=== PATIENT | male | born 1945 | race Caucasian/White ===

== ENCOUNTER 2016-11-27 11:44 | Inpatient (IN) | payer BC, OTHER ==
[~2016-11-27] VITALS: Ht 175.3 cm; Wt 86.0 kg
[2016-11-27] MEDS ORDERED: DIAZ2TAB PO (12:47)
[2016-11-27] MEDS ORDERED: ADVIN25/60 INH (12:47)
[2016-11-27] MEDS ORDERED: HYDR-5688 PO (12:47)
[2016-11-27] MEDS ORDERED: FINA1TAB36 PO (12:47)
--- NOTE | 2016-11-27 13:09 | EMERGENCY ROOM VISIT NOTE ---
History Report prepared by Hernesto: Geri Marion Under the Supervision of: Dr. Jr Valdez M.D. First contact with patient: 12:28 Chief Complaint: BACK PAIN Stated Complaint: BACK PAIN/ LEG PAIN History of Present Illness The patient is a 71 year old male who presents to the Emergency Room with complaints of persistent back pain that started 3 days ago. The patient states that he is supposed to have a MRI done that Dr. Mejia - Orthopedic Surgery ordered. The patient states that he experienced spasms in his lower back two weeks ago, but they resolved on their own. 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 The spasms are worse than they were two weeks ago and he is having trouble ambulating secondary to the pain. He is also experiencing left leg pain and numbness in the bottom of his feet. The patient denies weakness, bowel or bladder incontinence, and numbness in his thighs. The patient went to see Dr. Mejia for the pain and he prescribed him an antiinflammatory. The antiinflammatory offered him no relief, so Dr. Mejia prescribed him Vicodin and Valium. The patient is resting comfortably now. Source of History: patient Onset: 3 days ago Position: back Timing: other (persitent) Modifying Factors (Worsening): other (walking) Associated Symptoms: + numbness (in bottom of feet), No weakness Note: trouble ambulating, left leg pain, no bowel or bladder incontinence, no numbness in thighs Review of Systems See HPI for pertinent positives & negatives. A total of 10 systems reviewed and were otherwise negative. Past Medical & Surgical Medical Problems: (1) Nontoxic multinodular goiter Family History No pertinent family history Social History Smoking Status: Former Smoker Marital Status: Housing Status: lives with family Current/Historical Medications Scheduled Aspirin (Aspirin EC Low Dose), 81 MG PO DAILY Cholecalciferol (Vitamin D3), 1 TAB PO DAILY Finasteride (Proscar), 1 TAB PO DAILY Fluticasone Prop/Salmeterol (Advair Diskus 100/50 60 Dose), 1 PUFFS INH BID Multivitamin (Multivitamin), 1 TAB PO DAILY Sertraline (Zoloft), 50 MG PO DAILY Tamsulosin Hcl (Flomax), 1 CAP PO DAILY Vitamin Mixture (Vitamin E Complete High G), 1 CAP PO DAILY Scheduled PRN Albuterol Sulfate (Proair Respiclick), 2 PUFF INH QID PRN for SOB/Wheezing Hydrocodone/Acetaminophen 5MG/325MG ([place] 5MG/325MG), 1-2 TABLETS PO Q6 PRN for Pain Temazepam (Restoril), 1 CAP PO HS PRN for Insomnia Allergies Coded Allergies: No Known Allergies (Unverified , 11/27/16) Physical Exam Vital Signs Date Time Temp Pulse Resp B/P Pulse Ox O2 Delivery O2 Flow Rate FiO2 11/27/16 15:33 49 18 135/80 97 11/27/16 14:39 49 119/66 96 11/27/16 13:12 53 11/27/16 11:49 36.9 51 18 124/73 97 Room Air Physical Exam GENERAL: Patient is a healthy-appearing well-nourished male HEAD: Normocephalic atraumatic EYES: Ocular movements intact pupils equal and react to light OROPHARYNX mucous membranes are moist no exudates present no erythema or edema present NECK: Supple no nuchal rigidity CHEST: Good equal expansion LUNGS: Clear and equal to auscultation CARDIAC: Normal S1 and S2 ABDOMEN: Soft nontender no guarding BACK: No CVA tenderness. No evidence of saddle anesthesia. No loss of bowel or bladder control. EXTREMITIES: 5/5 strength in bilateral lower extremities. No pain upon palpation normal muscle strength in all groups no clubbing cyanosis or edema NEURO: Patient is following commands is answering questions appropriately. Alert and oriented x3 Cranial Nerves 2-12 grossly intact Medical Decision & Procedures ER Provider Diagnostic Interpretation: MRI results as stated below per my review and radiologist interpretation: MRI OF THE LUMBAR SPINE WITHOUT IV CONTRAST IMPRESSION: 1. There is a left lateral disc herniation at L4-L5. A disc fragment obliterates the left neural foramen and impinges on the exiting left L4 nerve root. 2. Lumbosacral spondylosis at additional levels as detailed above. See discussion for level by level analysis. There is no significant acquired compromise of the central canal. 3. Degenerative disc disease with associated degenerative endplate edema as above. Dictated: 11/27/2016 2:21 PM Transcribed: 11/27/2016 3:08 PM [email or web address] Electronically signed by: Raymond Harvey M.D. 11/27/2016 3:11 PM Dictated Date/Time: 11/27/2016 2:21 PM Laboratory Results 11/27/16 13:05 Red Blood Count 4.21, Mean Corpuscular Volume 91.2, Mean Corpuscular Hemoglobin 32.3, Mean Corpuscular Hemoglobin Concent 35.4, Mean Platelet Volume 10.1, Neutrophils (%) (Auto) 84.1, Lymphocytes (%) (Auto) 12.1, Monocytes (%) (Auto) 2.9, Eosinophils (%) (Auto) 0.5, Basophils (%) (Auto) 0.1, Neutrophils # (Auto) 6.60, Lymphocytes # (Auto) 0.95, Monocytes # (Auto) 0.23, Eosinophils # (Auto) 0.04, Basophils # (Auto) 0.01 11/27/16 13:05 Test 11/27/16 13:05 11/27/16 13:20 White Blood Count 7.85 K/uL (4.8-10.8) Red Blood Count 4.21 M/uL (4.7-6.1) Hemoglobin 13.6 g/dL (14.0-18.0) Hematocrit 38.4 % (42-52) Mean Corpuscular Volume 91.2 fL (80-100) Mean Corpuscular Hemoglobin 32.3 pg (25-34) Mean Corpuscular Hemoglobin Concent 35.4 g/dl (32-36) Platelet Count 157 K/uL (130-400) Mean Platelet Volume 10.1 fL (7.4-10.4) Neutrophils (%) (Auto) 84.1 % Lymphocytes (%) (Auto) 12.1 % Monocytes (%) (Auto) 2.9 % Eosinophils (%) (Auto) 0.5 % Basophils (%) (Auto) 0.1 % Neutrophils # (Auto) 6.60 K/uL (1.4-6.5) Lymphocytes # (Auto) 0.95 K/uL (1.2-3.4) Monocytes # (Auto) 0.23 K/uL (0.11-0.59) Eosinophils # (Auto) 0.04 K/uL (0-0.5) Basophils # (Auto) 0.01 K/uL (0-0.2) RDW Standard Deviation 40.9 fL (36.4-46.3) RDW Coefficient of Variation 12.4 % (11.5-14.5) Immature Granulocyte % (Auto) 0.3 % Immature Granulocyte # (Auto) 0.02 K/uL (0.00-0.02) Anion Gap 9.0 mmol/L (3-11) Est Creatinine Clear Calc Drug Dose 98.3 ml/min Estimated GFR () 107.1 Estimated GFR (Non- 92.4 BUN/Creatinine Ratio 12.4 (10-20) Calcium Level 8.8 mg/dl (8.5-10.1) Total Bilirubin 0.6 mg/dl (0.2-1) Direct Bilirubin 0.2 mg/dl (0-0.2) Aspartate Amino Transf (AST/SGOT) 16 U/L (15-37) Alanine Aminotransferase (ALT/SGPT) 22 U/L (12-78) Alkaline Phosphatase 74 U/L (45-117) Total Protein 6.7 gm/dl (6.4-8.2) Albumin 3.8 gm/dl (3.4-5.0) Lipase 111 U/L (73-393) Urine Color YELLOW Urine Appearance CLEAR (CLEAR) Urine pH 6.5 (4.5-7.5) Urine Specific [place] 1.010 (1.000-1.030) Urine Protein NEG (NEG) Urine Glucose (UA) NEG (NEG) Urine Ketones NEG (NEG) Urine Occult Blood NEG (NEG) Urine Nitrite NEG (NEG) Urine Bilirubin NEG (NEG) Urine Urobilinogen NEG (NEG) Urine Leukocyte Esterase NEG (NEG) Labs reviewed by ED physician. Medications Administered Medications (Trade) Dose Ordered Sig/[place] Route Start Time Stop Time Status Last Admin Dose Admin Dexamethasone Sodium Phosphate (Decadron Inj) 10 mg NOW ONCE IV 11/27/16 15:15 11/27/16 15:16 DC 11/27/16 15:24 10 MG Ketorolac Tromethamine (Toradol Inj) 30 mg NOW STAT IV 11/27/16 15:16 11/27/16 15:17 DC 11/27/16 15:23 30 MG Hydromorphone HCl (Dilaudid Inj) 0.5 mg NOW STAT IV 11/27/16 15:30 11/27/16 15:31 DC 11/27/16 17:02 0.5 MG Ondansetron HCl (Zofran Inj) 4 mg NOW STAT IV 11/27/16 15:30 11/27/16 15:31 DC 11/27/16 17:02 4 MG ED Course 1231: Past medical records reviewed. The patient was evaluated in room A12. A complete history and physical examination was performed. 1255: I reassessed the patient. He is resting comfortably. 1333: I reevaluated the patient. He is still resting comfortably. 1514: I discussed the patient's case with Dr. Mejia - Orthopedic Surgery. He said to admit the patient to medicine. 1515: Ordered Decadron 10 mg IV 1516: Upon reexamination the patient is resting comfortably. I discussed results and treatment plan with the patient. He verbalizes agreement and understanding. The patient will be evaluated for further management. Ordered Toradol Inj 30 mg IV 1520: I discussed the patient's case with Bonny Rubio, she has agreed to evaluate the patient for further management and care. 1530: Ordered Zofran Inj 4 mg IV, Dilaudid Inj 0.5 mg IV Medical Decision Differential diagnosis: Etiologies such as musculoskeletal, disc herniation, fracture, aortic disease, metastatic disease, cord compression, discitis, infection, renal colic, gastrointestinal, acute exacerbation of chronic back pain, sciatica, cauda equina, as well as others were entertained. This is a 71-year-old male who presents emergency department after he was unable to walk this morning due to pain. The patient had a scheduled MRI as an outpatient however came to the emergency department instead. He took his [place] Bolt as well as Valium and now is pain-free upon arrival to the emergency department. An IV was established laboratory work was obtained and the patient was sent for an MRI of the spine. The patient's MRIs concerning for an L4 impinging on the neural foramen. I did discuss the case with Dr. Smith who asked that the patient be admitted to the hospitalist service. An IV was established, the patient was given Decadron, Toradol, Dilaudid, Zofran. Repeat examination revealed improvement patient's symptoms. I did discuss the case with the hospitalist service who agreed to admit the patient. Patient and family were in agreement with the treatment plan. Consults Time Called: 151 Consulting Physician: Dr. Mejia - Orthopedic Surgery Returned Call: 1514 I discussed the patient's case with Dr. Mejia - Orthopedic Surgery. He said to admit the patient to medicine. Additional Consults: Time Called: 151 Consulted Physician: Bonny Rubio Returned Call: 1520 Additional Comments: I discussed the patient's case with Bonny Rubio, she has agreed to evaluate the patient for further management and care. Impression Primary Impression: Back pain Additional Impression: Slipped intervertebral disc Scribe Attestation The scribe's documentation has been prepared under my direction and personally reviewed by me in its entirety. I confirm that the note above accurately reflects all work, treatment, procedures, and medical decision making performed by me. Departure Information Dispostion Being Evaluated By Hospitalist Pat Reynolds M.D. (PCP) Patient Instructions [facility] Problem Qualifiers Primary Impression: Back pain Back pain location: low back pain Chronicity: unspecified Back pain laterality: unspecified Sciatica presence: unspecified whether sciatica present Qualified Codes: M54.5 - Low back pain Additional Impression: Slipped intervertebral disc Spinal region: lumbar Qualified Codes: M51.26 - Other intervertebral disc displacement, lumbar region
[2016-11-27 13:21] LABS: BASO % 0.1 %; BASO ABS # 0.01 K/uL (0-0.2); COMPLETE YES; EOS % 0.5 %; HEMATOCRIT 38.4 % (42-52); IG% 0.3 %; LYMPH % 12.1 %; LYMPH ABS # 0.95 K/uL (1.2-3.4); MEAN CELL VOLUME 91.2 fL (80-100); MEAN CORPUSCULAR HEMOGLOBIN 32.3 pg (25-34); MEAN CORPUSCULAR HGB CONC 35.4 g/dl (32-36); MEAN PLATELET VOLUME 10.1 fL (7.4-10.4); MONO % 2.9 %; NEUT % 84.1 %; PLATELET COUNT 157 K/uL (130-400); RED BLOOD COUNT 4.21 M/uL (4.7-6.1); WHITE BLOOD COUNT 7.85 K/uL (4.8-10.8)
[2016-11-27 13:42] LABS: BUN/CREATININE RATIO 12.4 (10-20); CALCIUM 8.8 mg/dl (8.5-10.1); CREATININE 0.76 mg/dl (0.60-1.40); POTASSIUM 3.8 mmol/L (3.5-5.1)
[2016-11-27 13:49] LABS: URINE APPEARANCE CLEAR (CLEAR); URINE BILIRUBIN NEG (NEG); URINE COLOR YELLOW; URINE NITRITE NEG (NEG); URINE PH 6.5 (4.5-7.5); UROBILINOGEN NEG (NEG)
[2016-11-27 13:57] LABS: MANUAL MICROSCOPIC REQUIRED? NO; REVIEW REQ? NO
--- NOTE | 2016-11-27 15:08 | DIAGNOSTIC IMAGING REPORT ---
MRI OF THE LUMBAR SPINE WITHOUT IV CONTRAST CLINICAL HISTORY: Low back pain. Left leg pain. COMPARISON STUDY: No priors. TECHNIQUE: MRI of the lumbar spine is performed utilizing various T1 and T2-weighted sequences in the axial and sagittal planes. IV contrast was not administered for this examination. FINDINGS: Lumbar spine: Vertebral body height and alignment are maintained throughout the lumbar spine. Marrow signal intensity is heterogeneous. Advanced chronic degenerative endplate change with marrow edema is seen at L2-L3. Chronic degenerative endplate change with marrow edema is also seen at L4-L5 and L5-S1. The transverse and spinous processes appear intact. There is no evidence of spondylolysis. No destructive bony lesion is identified. A tiny hemangioma is noted in the body of L4. Intervertebral discs: There is degenerative disc desiccation and loss of height throughout the lumbar spine, greatest at L2-L3 and at L5-S1. Paraspinal cord: Partially visualized spinal cord is normal in morphology and signal intensity. The conus medullaris terminates at the level of L1. The nerve roots of the cauda equina are normal in morphology. L1-L2: Unremarkable. L2-L3: There is minimal posterior disc bulge. The central canal and neural foramina are patent. There is minimal subarticular stenosis. Facet arthropathy is of no consequence. L3-L4: There is minimal posterior disc bulge with annular fissure. The central canal and neural foramina are patent. L4-L5: There is a left lateral disc herniation. A large fragment obliterates the left neural foramen as seen on axial image #20. The fragment measures 1.6 cm, and impinges on the exiting left L4 nerve root. The central canal is clear. L5-S1: The central canal and neural foramina are patent. Facet arthropathy is of no consequence. Sacrum: Marrow signal intensity within the sacrum is heterogeneous. No acute abnormality is seen. Soft tissues: There is mild fatty atrophy of the paraspinous musculature. The kidneys demonstrate cortical atrophy. The partially imaged retroperitoneal structures are grossly unremarkable but incomplete evaluated. IMPRESSION: 1. There is a left lateral disc herniation at L4-L5. A disc fragment obliterates the left neural foramen and impinges on the exiting left L4 nerve root. 2. Lumbosacral spondylosis at additional levels as detailed above. See discussion for level by level analysis. There is no significant acquired compromise of the central canal. 3. Degenerative disc disease with associated degenerative endplate edema as above. Dictated: 11/27/2016 2:21 PM Transcribed: 11/27/2016 3:08 PM [email or web address] Electronically signed by: Raymond Harvey M.D. 11/27/2016 3:11 PM Dictated Date/Time: 11/27/2016 2:21 PM
[2016-11-27] MEDS ORDERED: DEXAMETHASONE SOD INJ 10 MG/ML VIAL IV ONE (15:15)
[2016-11-27] MEDS ORDERED: KETOROLAC TROMETHAMINE 30 MG/ML VIAL IV STA (15:16)
[2016-11-27] MEDS ORDERED: HYDROmorphone INJ 0.5 MG/0.5 ML SYR IV STA (15:30)
[2016-11-27] MEDS ORDERED: ONDANSETRON INJ 2 MG/ML 2 ML VIAL IV STA (15:30)
[2016-11-27] MEDS ORDERED: ACETAMINOPHEN 325 MG TAB PO PRN (16:00)
[2016-11-27] MEDS ORDERED: HYDROmorphone INJ 1 MG/ML SYR IV PRN ×2 (16:15→16:45)
[2016-11-27] MEDS ORDERED: ADVIN10/60 INH (16:42)
[2016-11-27] MEDS ORDERED: TEMA-79 PO (16:42)
[2016-11-27] MEDS ORDERED: CHOL1000 PO (16:42)
[2016-11-27] MEDS ORDERED: ASPEC81 PO (16:42)
[2016-11-27] MEDS ORDERED: SERT-234 PO (16:42)
[2016-11-27] MEDS ORDERED: ALBU18002 INH (16:42)
[2016-11-27] MEDS ORDERED: MULT-506 PO (16:42)
[2016-11-27] MEDS ORDERED: TAMS0.4C38 PO (16:42)
[2016-11-27] MEDS ORDERED: VITACAP PO (16:42)
[2016-11-27] MEDS ORDERED: FINA5TAB4 PO (16:42)
[2016-11-27] MEDS ORDERED: HYDROmorphone INJ 0.5 MG/0.5 ML SYR IV PRN (16:45)
[2016-11-27 17:45] VITALS: BP 115/75; PULSE 57; TEMP 37; O2SAT 96; Ht 175.3 cm; Wt 86.0 kg
--- NOTE | 2016-11-27 18:38 | History and Physical ---
History & Physical Date & Time of Service: Nov 27, 2016 at 18:25 Chief Complaint: Back Pain/ Leg Pain Primary Care Physician: Pat Monaco M.D. History of Present Illness 71 year old male who presents to the ER with back pain and left leg pain. Patient reports chronic back pain for the past several years. He reports acute worsening of the pain 4 days ago. Patient reports he was putting his socks on at the time. He reports the pain is located on the left side of his back and radiates down the left leg. He reports intermittent numbness to the left foot. He denies bowel or bladder dysfunction. Pain is increased with ambulation. No fever or chills. He denies chest pain and shortness of breath. No lightheadedness, dizziness, diaphoresis, or syncopal events. He denies abdominal pain, nausea, and vomiting. In the ER, patient underwent MRI that showed a left lateral disc herniation at L4-L5. A disc fragment obliterates the left neural foramen and impinges on the exiting left L4 nerve root. Patient notes improvement of pain when he took Valium that was prescribed for relaxation before the MRI. In the ED he was also given IV Dilaudid, Toradol, and Decadron. Past Medical/Surgical History Medical Problems: (1) Asthma, non-allergic Status: Chronic (2) BPH (benign prostatic hyperplasia) Status: Chronic (3) Depression with anxiety Status: Chronic (4) Nontoxic multinodular goiter Status: Resolved Surgical Problems: (1) History of tonsillectomy Status: Chronic Family History FH: CAD (coronary artery disease) FATHER Social History Smoking Status: Former Smoker Alcohol Use: occasionally Immunizations History of Influenza Vaccine: Yes Influenza Vaccine Date: Aug 07, 2016 History of Tetanus Vaccine?: Yes Tetanus Immunization Date: March 10, 2012 History of Pneumococcal: Yes Pneumococcal Date: Feb 14, 2016 Allergies Coded Allergies: No Known Allergies (Unverified , 11/27/16) Home Medications Scheduled Aspirin (Aspirin EC Low Dose), 81 MG PO DAILY Cholecalciferol (Vitamin D3), 1 TAB PO DAILY Finasteride (Proscar), 1 TAB PO DAILY Fluticasone Prop/Salmeterol (Advair Diskus 100/50 60 Dose), 1 PUFFS INH BID Multivitamin (Multivitamin), 1 TAB PO DAILY Sertraline (Zoloft), 50 MG PO DAILY Tamsulosin Hcl (Flomax), 1 CAP PO DAILY Vitamin Mixture (Vitamin E Complete High G), 1 CAP PO DAILY Scheduled PRN Albuterol Sulfate (Proair Respiclick), 2 PUFF INH QID PRN for SOB/Wheezing Hydrocodone/Acetaminophen 5MG/325MG ([place] 5MG/325MG), 1-2 TABLETS PO Q6 PRN for Pain Temazepam (Restoril), 1 CAP PO HS PRN for Insomnia Review of Systems 10 point review of systems was completed with the pertinent positives and negatives noted per the HPI Physical Exam Vital Signs Date Time Temp Pulse Resp B/P Pulse Ox O2 Delivery O2 Flow Rate FiO2 11/27/16 17:40 36.9 53 13 130/78 94 11/27/16 17:28 130/78 11/27/16 17:14 53 13 94 11/27/16 17:01 141/76 11/27/16 16:44 61 18 96 11/27/16 16:28 133/80 11/27/16 16:14 51 21 96 11/27/16 15:58 125/78 11/27/16 15:44 49 15 97 11/27/16 15:33 49 18 135/80 97 11/27/16 15:31 135/80 11/27/16 15:29 112/64 11/27/16 14:58 112/64 11/27/16 14:44 51 96 11/27/16 14:39 49 119/66 96 11/27/16 14:38 119/66 11/27/16 13:12 53 11/27/16 11:49 36.9 51 18 124/73 97 Room Air General Appearance: no apparent distress Head: normocephalic Eyes: normal inspection ENT: hearing grossly normal Neck: supple, no JVD Respiratory/Chest: lungs clear, normal breath sounds, no respiratory distress Cardiovascular: regular rate, rhythm, no edema, normal peripheral pulses Abdomen/GI: normal bowel sounds, non tender, soft Extremities/Musculoskelatal: normal inspection, no calf tenderness, + pertinent finding (negative straight leg test) Neurologic/Psych: no motor/sensory deficits, alert, normal mood/affect, oriented x 3 Skin: normal color, warm/dry Diagnostics Laboratory Results Results Past 24 Hours Test 11/27/16 13:05 11/27/16 13:20 Range/Units White Blood Count 7.85 4.8-10.8 K/uL Red Blood Count 4.21 4.7-6.1 M/uL Hemoglobin 13.6 14.0-18.0 g/dL Hematocrit 38.4 42-52 % Mean Corpuscular Volume 91.2 80-100 fL Mean Corpuscular Hemoglobin 32.3 25-34 pg Mean Corpuscular Hemoglobin Concent 35.4 32-36 g/dl Platelet Count 157 130-400 K/uL Mean Platelet Volume 10.1 7.4-10.4 fL Neutrophils (%) (Auto) 84.1 % Lymphocytes (%) (Auto) 12.1 % Monocytes (%) (Auto) 2.9 % Eosinophils (%) (Auto) 0.5 % Basophils (%) (Auto) 0.1 % Neutrophils # (Auto) 6.60 1.4-6.5 K/uL Lymphocytes # (Auto) 0.95 1.2-3.4 K/uL Monocytes # (Auto) 0.23 0.11-0.59 K/uL Eosinophils # (Auto) 0.04 0-0.5 K/uL Basophils # (Auto) 0.01 0-0.2 K/uL RDW Standard Deviation 40.9 36.4-46.3 fL RDW Coefficient of Variation 12.4 11.5-14.5 % Immature Granulocyte % (Auto) 0.3 % Immature Granulocyte # (Auto) 0.02 0.00-0.02 K/uL Sodium Level 138 136-145 mmol/L Potassium Level 3.8 3.5-5.1 mmol/L Chloride Level 105 98-107 mmol/L Carbon Dioxide Level 24 21-32 mmol/L Anion Gap 9.0 3-11 mmol/L Blood Urea Nitrogen 9 7-18 mg/dl Creatinine 0.76 0.60-1.40 mg/dl Est Creatinine Clear Calc Drug Dose 98.3 ml/min Estimated GFR () 107.1 Estimated GFR (Non- 92.4 BUN/Creatinine Ratio 12.4 10-20 Random Glucose 111 70-99 mg/dl Calcium Level 8.8 8.5-10.1 mg/dl Total Bilirubin 0.6 0.2-1 mg/dl Direct Bilirubin 0.2 0-0.2 mg/dl Aspartate Amino Transf (AST/SGOT) 16 15-37 U/L Alanine Aminotransferase (ALT/SGPT) 22 12-78 U/L Alkaline Phosphatase 74 45-117 U/L Total Protein 6.7 6.4-8.2 gm/dl Albumin 3.8 3.4-5.0 gm/dl Lipase 111 73-393 U/L Urine Color YELLOW Urine Appearance CLEAR CLEAR Urine pH 6.5 4.5-7.5 Urine Specific [place] 1.010 1.000-1.030 Urine Protein NEG NEG Urine Glucose (UA) NEG NEG Urine Ketones NEG NEG Urine Occult Blood NEG NEG Urine Nitrite NEG NEG Urine Bilirubin NEG NEG Urine Urobilinogen NEG NEG Urine Leukocyte Esterase NEG NEG Diagnostic Radiology LUMBAR SPINE MRI IMPRESSION: 1. There is a left lateral disc herniation at L4-L5. A disc fragment obliterates the left neural foramen and impinges on the exiting left L4 nerve root. 2. Lumbosacral spondylosis at additional levels as detailed above. See discussion for level by level analysis. There is no significant acquired compromise of the central canal. 3. Degenerative disc disease with associated degenerative endplate edema as above. Impression Assessment and Plan INTRACTABLE BACK PAIN, L4-L5 DISC HERNIATION - admit to med/surg - Dr. Mejia on consult - recommends IV Decadron and Toradol around the clock, PRN Dilaudid - PT/OT BPH - continue finasteride and tamsulosin DEPRESSION - continue sertraline DVT PROPHYLAXIS - SCDs in the event patient requires OR DISPO - In my clinical judgment this beneficiary meets acute admission criteria, established by [facility], that includes being hospitalized through two midnights. ADDENDUM: I have examined the patient and have discussed the case with the provider above. 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 He reports a h/o IT band tear on imaging in the past, and surgery was suggested but he did not follow through. SLR negative, Neurologically intact, the patient was able to walk for me. Cont plan as stated. Pain control efforts overnight and per Dr. Mejia. Taylor Bach DO [facility] Hospitalist. Level of Care Med/Surg Resuscitation Status FULL RESUSCITATION VTE Prophylaxis VTE Risk Assessment Done? Y/N: Yes Risk Level: Moderate Given or contraindicated: Enoxaparin (Lovenox)SQ
[2016-11-27] MEDS: HYDROCODONE/ACETAMOPHEN 5/325MG TAB PO PRN (19:00)
--- NOTE | 2016-11-27 19:11 | HISTORY & PHYSICAL EXAMINATION ---
DATE OF ADMISSION: 11/27/2016 CHIEF COMPLAINT: Back and lower extremity difficulty. WORKING DIAGNOSIS: Disc herniation, lumbar spine L4-L5 with L4 nerve root entrapment. HISTORY OF PRESENT ILLNESS: Seymour Oconnell is a delightful young gentleman. He is 71 years of age. I have known him for at least 1.5 year. He was in his pretty good state of health up until recently where he developed some back and buttock pain, lower extremity difficulty. We were attributing it to the degenerative segment at L5-S1. Then the problem really got out of control in the last several days, leading to this hospital stay today. He was basically nonambulatory. He tried on 2 different occasions to get to the MRI scanner as an outpatient because of the severity of pain and he could not. He finally got to the hospital today by way of emergency transport and lo and behold he has a large disc herniation at L4-L5 on the left hand side which completely effaces and traps the 4 nerve roots underneath the pedicle of the 4 vertebrae. We admitted him for pain control. He was basically immobile. We have him on IV steroids along with Toradol along with p.o. and IV narcotics and he is relatively comfortable. We will get the pain management team to weigh in on him if at all possible. I explained to the family this is a weekend and then they cannot be around 24/. We are optimistic that he will respond to conservative nonsurgical methods, but there is a high likelihood as well he may need surgical procedure. I would be in favor of a lumbar spine discectomy at L4-L5. I do not believe he will need any more instrumentation or fusion technology. He may need some motion-preserving technology if I would have to destabilize him with more extensive dissection. JEET
[2016-11-27] MEDS: DEXAMETHASONE INJ 6 MG in SYRINGE 0 ML IV SCH (20:28)
[2016-11-27] MEDS: FLUTICASONE/SALMETEROL 100/50 (ADVAIR) 14 PUFF/1 INHALER INH SCH ×2 (20:35→20:44)
--- NOTE | 2016-11-27 21:25 | CONSULTATION REPORT ---
DATE OF CONSULTATION: 11/27/2016 CHIEF COMPLAINT: Back pain and left lower extremity pain. HISTORY OF PRESENT ILLNESS: The patient is a 71-year-old male known to Dr. Mejia who has been seeing for a degenerative segment L5-S1 intermittently over the years. However, 3 days ago he developed acute worsening of his pain. He has been having excruciating pain as he describes in his left leg, around the left lateral hip area and down the left leg. Reports some diminished sensation at times in the left lower leg. No bowel or bladder incontinence. He was scheduled for an MRI today, but could not get there and called the paramedics, came to the Emergency Room, where he is evaluated and being admitted for pain management at this point. His pain is worse with ambulation. He has been taking Meloxicam as well as [place]. He did have 1 Valium today which helped him quite a bit, he said. No other complaints at this time. PAST MEDICAL HISTORY: Asthma, enlarged prostate. PAST SURGICAL HISTORY: Denied. MEDICATIONS: Advair inhaler, finasteride. ALLERGIES: No known drug allergies. SOCIAL HISTORY: He is . Denies tobacco use. Drinks alcohol occasionally. FAMILY HISTORY: Noncontributory. REVIEW OF SYSTEMS: Noncontributory. PHYSICAL EXAMINATION: GENERAL: Today, he is a well-developed, well-nourished male in no distress at this time. He is supine in bed. EXTREMITIES: Examination of the left lower extremity today, he has no pain with his hip with range of motion of his hip joint. Negative straight leg raise testing at this time. His sensation is intact to touch. He is able to dorsiflex, plantarflex, invert and adrian. He has 5/5 strength with dorsiflexion, plantar flexion, inversion, and eversion. X-RAYS: No x-rays were obtained. MRI was obtained today which demonstrated a left lateral disc herniation at L4-L5, impinging on the nerve root as well as some lumbar spondylosis/degenerative disc disease. IMPRESSION: Low back pain with left lower extremity radiculopathy, L4-L5 left lateral disc herniation. PLAN: He is being admitted here to [facility] by the hospitalist service today. They have already ordered PT/OT, steroids, and toradol. We will consult pain management for their recommendations. We will order TEDs, SCDs for DVT prophylaxis. He will be seen and evaluated by Dr. Mejia as well. JEET
[2016-11-27] MEDS ORDERED: NURSING VERBAL MED ORDER ONE (21:45)
[2016-11-27] MEDS: DIAZEPAM 5MG TAB PO PRN (22:04)
[2016-11-27] MEDS: KETOROLAC TROMETHAMINE 15 MG/ML VIAL IV. SCH (22:05)
[2016-11-27 22:50] VITALS: BP 111/51; PULSE 61; TEMP 36.5; O2SAT 94
[2016-11-28] MEDS: DEXAMETHASONE INJ 6 MG in SYRINGE 0 ML IV SCH ×4 (02:02→19:29)
[2016-11-28] MEDS: KETOROLAC TROMETHAMINE 15 MG/ML VIAL IV. SCH ×3 (03:55→17:06)
[2016-11-28 04:00] VITALS: BP 127/72; PULSE 55; TEMP 36.4; O2SAT 99
[2016-11-28 07:13] LABS: HEMATOCRIT 37.6 % (42-52); MEAN CELL VOLUME 90.2 fL (80-100); MEAN CORPUSCULAR HEMOGLOBIN 31.9 pg (25-34); MEAN CORPUSCULAR HGB CONC 35.4 g/dl (32-36); MEAN PLATELET VOLUME 10.2 fL (7.4-10.4); PLATELET COUNT 154 K/uL (130-400); RED BLOOD COUNT 4.17 M/uL (4.7-6.1); WHITE BLOOD COUNT 9.69 K/uL (4.8-10.8)
[2016-11-28] MEDS: DIAZEPAM 5MG TAB PO PRN ×2 (07:20→17:06)
[2016-11-28 07:43] LABS: BUN/CREATININE RATIO 16.7 (10-20); CALCIUM 8.9 mg/dl (8.5-10.1); CREATININE 0.72 mg/dl (0.60-1.40); POTASSIUM 4.3 mmol/L (3.5-5.1)
[2016-11-28 07:55] VITALS: BP 134/60; PULSE 59; TEMP 36.5; O2SAT 95
[2016-11-28] MEDS: FLUTICASONE/SALMETEROL 100/50 (ADVAIR) 14 PUFF/1 INHALER INH SCH ×2 (08:25→21:29)
[2016-11-28] MEDS: TAMSULOSIN HCL 0.4 MG CAP PO SCH (08:26)
[2016-11-28] MEDS: ASPIRIN 81 MG ECTAB PO SCH (08:26)
[2016-11-28] MEDS: MULTIVITAMIN TAB PO SCH (08:26)
[2016-11-28] MEDS: CHOLECALCIFEROL 1000 INTER.UNIT TAB PO SCH (08:27)
[2016-11-28] MEDS: FINASTERIDE 5 MG TAB PO SCH (08:27)
[2016-11-28] MEDS: SERTRALINE HCL 100 MG TAB PO SCH (08:27)
[2016-11-28 08:30] VITALS: O2SAT 95
[2016-11-28] MEDS: POLYETHYLENE (MIRALAX) 17 GM PACK PO SCH (08:32)
[2016-11-28] MEDS: ENOXAPARIN 40 MG/0.4 ML SYR SQ SCH (10:00)
--- NOTE | 2016-11-28 10:56 | PROGRESS NOTE ---
DATE: 11/28/2016 DATE: 11/28/2016. SUBJECTIVE: Pain controlled. Alert, oriented. No neurological deficit. He does have pain when he get up to use the bathroom, standing on his left lower extremity following the 4 and 5 nerve root distribution on the left. A 5/5 motor strength, good sensation, motor ability. There is no deficit, no sensory deficits. Hip and knee examination normal. Images reviewed. IMPRESSION: Disc herniation L4-L5 with effacement of the 4 nerve root on the left. DISPOSITION: Includes pain management, Toradol, Decadron, Neurontin and hopefully he will respond to an injection. He may need surgical intervention. Both options have been explained to the patient. Tentatively would likely get him home Wednesday, Wednesday, Wednesday, set up surgery as an outpatient down the road.
[2016-11-28 11:59] VITALS: BP 139/60; PULSE 63; TEMP 36.7; O2SAT 95
--- NOTE | 2016-11-28 12:06 | Progress Note ---
Internal Med Progress Note Date of Service: Nov 28, 2016. Provider Documentation: SUBJECTIVE: Patient is doing much better today. Low back pain /Left lower leg pain - improving Ambulating in hallway with minimal discomfort in lower back and left leg. No trauma. No localized weakness, numbness, fever, chills. OBJECTIVE: Vital Signs-as noted below Exam: General-AAOX3, no distress Neck-Supple, No JVD Lungs-AEBE, no wheezing, rhonchi Heart-S1, S2 normal, no murmurs Extremities-No edema Neuro-AAOX3, Power 5/5 all ext, Sensory -normal Lab data as noted below. Diagnostic Radiology LUMBAR SPINE MRI IMPRESSION: 1. There is a left lateral disc herniation at L4-L5. A disc fragment obliterates the left neural foramen and impinges on the exiting left L4 nerve root. 2. Lumbosacral spondylosis at additional levels as detailed above. See discussion for level by level analysis. There is no significant acquired compromise of the central canal. 3. Degenerative disc disease with associated degenerative endplate edema as above. ASSESSMENT & PLAN: Assessment and Plan INTRACTABLE BACK PAIN WITH LEFT LOWER LEG RADICULOPATHY SECONDARY TO L4-L5 DISC HERNIATION - IV Decadron, IV Toradol around the clock, PRN Percocet per ortho - Pain mx consulted by ortho- awaiting inputs - Appreciate orthopedic inputs - PT/OT BPH - Continue finasteride and tamsulosin DEPRESSION - continue sertraline DVT PROPHYLAXIS - SCDs in the event patient requires OR DISPO -Likely in 1-2 days once pain better controlled. Vital Signs: Date Time Temp Pulse Resp B/P Pulse Ox O2 Delivery O2 Flow Rate FiO2 11/28/16 08:30 95 Room Air 11/28/16 07:55 36.5 59 16 134/60 95 Room Air 11/28/16 07:30 Room Air 11/28/16 04:00 36.4 55 16 127/72 99 Room Air 11/27/16 23:10 Room Air 11/27/16 22:50 36.5 61 18 111/51 94 Room Air 11/27/16 17:45 37.0 57 16 115/75 96 Room Air 11/27/16 17:40 36.9 53 13 130/78 94 11/27/16 17:28 130/78 11/27/16 17:14 53 13 94 11/27/16 17:01 141/76 11/27/16 16:44 61 18 96 11/27/16 16:28 133/80 11/27/16 16:14 51 21 96 11/27/16 15:58 125/78 11/27/16 15:44 49 15 97 11/27/16 15:33 49 18 135/80 97 11/27/16 15:31 135/80 11/27/16 15:29 112/64 11/27/16 14:58 112/64 11/27/16 14:44 51 96 11/27/16 14:39 49 119/66 96 11/27/16 14:38 119/66 11/27/16 13:12 53 Lab Results: Results Past 24 Hours Test 11/27/16 13:05 11/27/16 13:20 11/28/16 06:56 11/28/16 07:15 Range/Units White Blood Count 7.85 9.69 4.8-10.8 K/uL Red Blood Count 4.21 4.17 4.7-6.1 M/uL Hemoglobin 13.6 13.3 14.0-18.0 g/dL Hematocrit 38.4 37.6 42-52 % Mean Corpuscular Volume 91.2 90.2 80-100 fL Mean Corpuscular Hemoglobin 32.3 31.9 25-34 pg Mean Corpuscular Hemoglobin Concent 35.4 35.4 32-36 g/dl Platelet Count 157 154 130-400 K/uL Mean Platelet Volume 10.1 10.2 7.4-10.4 fL Neutrophils (%) (Auto) 84.1 % Lymphocytes (%) (Auto) 12.1 % Monocytes (%) (Auto) 2.9 % Eosinophils (%) (Auto) 0.5 % Basophils (%) (Auto) 0.1 % Neutrophils # (Auto) 6.60 1.4-6.5 K/uL Lymphocytes # (Auto) 0.95 1.2-3.4 K/uL Monocytes # (Auto) 0.23 0.11-0.59 K/uL Eosinophils # (Auto) 0.04 0-0.5 K/uL Basophils # (Auto) 0.01 0-0.2 K/uL RDW Standard Deviation 40.9 39.8 36.4-46.3 fL RDW Coefficient of Variation 12.4 12.2 11.5-14.5 % Immature Granulocyte % (Auto) 0.3 % Immature Granulocyte # (Auto) 0.02 0.00-0.02 K/uL Sodium Level 138 139 136-145 mmol/L Potassium Level 3.8 4.3 3.5-5.1 mmol/L Chloride Level 105 104 98-107 mmol/L Carbon Dioxide Level 24 24 21-32 mmol/L Anion Gap 9.0 11.0 3-11 mmol/L Blood Urea Nitrogen 9 12 7-18 mg/dl Creatinine 0.76 0.72 0.60-1.40 mg/dl Est Creatinine Clear Calc Drug Dose 98.3 103.8 ml/min Estimated GFR () 107.1 109.5 Estimated GFR (Non- 92.4 94.5 BUN/Creatinine Ratio 12.4 16.7 10-20 Random Glucose 111 122 70-99 mg/dl Calcium Level 8.8 8.9 8.5-10.1 mg/dl Total Bilirubin 0.6 0.2-1 mg/dl Direct Bilirubin 0.2 0-0.2 mg/dl Aspartate Amino Transf (AST/SGOT) 16 15-37 U/L Alanine Aminotransferase (ALT/SGPT) 22 12-78 U/L Alkaline Phosphatase 74 45-117 U/L Total Protein 6.7 6.4-8.2 gm/dl Albumin 3.8 3.4-5.0 gm/dl Lipase 111 73-393 U/L Urine Color YELLOW Urine Appearance CLEAR CLEAR Urine pH 6.5 4.5-7.5 Urine Specific [place] 1.010 1.000-1.030 Urine Protein NEG NEG Urine Glucose (UA) NEG NEG Urine Ketones NEG NEG Urine Occult Blood NEG NEG Urine Nitrite NEG NEG Urine Bilirubin NEG NEG Urine Urobilinogen NEG NEG Urine Leukocyte Esterase NEG NEG Hepatitis C Antibody Screen NEG NEG Prothrombin Time 11.0 9.0-12.0 SECONDS Prothromb Time International Ratio 1.0 0.9-1.1
[2016-11-28 15:34] VITALS: BP 130/60; PULSE 63; TEMP 36.7; O2SAT 95
[2016-11-28] MEDS: HYDROCODONE/ACETAMOPHEN 5/325MG TAB PO PRN (20:41)
[2016-11-28 23:03] VITALS: BP 123/65; PULSE 56; TEMP 36.7; O2SAT 95
[2016-11-28] MEDS ORDERED: NURSING VERBAL MED ORDER ONE (23:15)
[2016-11-29] MEDS: MoRPHine SULFATE 2 MG/ML CARP IV PRN ×2 (00:09→07:53)
[2016-11-29] MEDS: DEXAMETHASONE INJ 6 MG in SYRINGE 0 ML IV SCH ×3 (01:25→13:59)
[2016-11-29] MEDS: DIAZEPAM 5MG TAB PO PRN ×2 (01:28→13:58)
[2016-11-29 07:06] VITALS: BP 123/69; PULSE 56; TEMP 36.6; O2SAT 95
[2016-11-29] MEDS: TAMSULOSIN HCL 0.4 MG CAP PO SCH (08:57)
[2016-11-29] MEDS: POLYETHYLENE (MIRALAX) 17 GM PACK PO SCH (08:57)
[2016-11-29] MEDS: MULTIVITAMIN TAB PO SCH (08:57)
[2016-11-29] MEDS: FLUTICASONE/SALMETEROL 100/50 (ADVAIR) 14 PUFF/1 INHALER INH SCH (08:57)
[2016-11-29] MEDS: ASPIRIN 81 MG ECTAB PO SCH (08:57)
[2016-11-29] MEDS: SERTRALINE HCL 100 MG TAB PO SCH (08:58)
[2016-11-29] MEDS: FINASTERIDE 5 MG TAB PO SCH (08:58)
[2016-11-29] MEDS: CHOLECALCIFEROL 1000 INTER.UNIT TAB PO SCH (08:58)
[2016-11-29] MEDS: ENOXAPARIN 40 MG/0.4 ML SYR SQ SCH (08:59)
--- NOTE | 2016-11-29 11:53 | PROGRESS NOTE ---
DATE: 11/29/2016 SUBJECTIVE: Moderate complaints of pain, no gross neurological deficits. Significant pain with ambulation. No chest pain, shortness of breath. OBJECTIVE: Vital signs stable, afebrile. ASSESSMENT: Disc herniation, lumbar spine L4-L5. DISPOSITION: He is going ahead with surgical intervention. We will try to get that done later on this week. I would recommend him getting home sometime today, latest tomorrow. Prescription on his chart for Dilaudid, Toradol as well. It should help him with his pain and discomfort. Also some Valium. I think he should do fairly well at home. We will try to arrange his surgery as an outpatient.
[2016-11-29] MEDS ORDERED: VLM5 PO (12:49)
[2016-11-29] MEDS ORDERED: HYDR2TAB48 PO (12:49)
[2016-11-29] MEDS ORDERED: KETO10TA PO (12:49)
--- NOTE | 2016-11-29 12:51 | Discharge Instructions ---
Discharge Instructions Admission Reason for Admission: Back Pain Discharge Discharge Diagnosis / Problem: 1. Lumbar disc herniation L4-L5 Discharge Goals Goal(s): Diagnostic testing, Therapeutic intervention Activity Recommendations Activity Limitations: resume your previous activity (as tolerated ) . Instructions / Follow-Up Instructions / Follow-Up MEDICATION CHANGES: Pain medications: 1. Dilaudid 2 mg- 1-2 tabs q 6 hours as needed for severe pain 2. Valium 5 mg q6-8 hours as needed for spasm 3. Toradol 10 mg q 8 hours scheduled 4. Discontinue Aspirin from tomorrow as surgery scheduled on FOLLOW UP With Dr Mejia as per instructions Current Hospital Diet Patient's current hospital diet: Vegetarian Diet Discharge Diet Recommended Diet: AHA Diet (Heart Healthy), Low Sodium Diet (2gm Na) Pending Studies Studies pending at discharge: no Medical Emergencies . Who to Call and When: Medical Emergencies: If at any time you feel your situation is an emergency, please call 911 immediately. . Non-Emergent Contact Non-Emergency issues call your: Primary Care Provider . . "Provider Documentation" section prepared by Odessa Monaco. VTE Core Measure Inpt VTE Proph given/why not?: Enoxaparin (Lovenox)SQ
--- NOTE | 2016-11-29 12:54 | Progress Note ---
Internal Med Progress Note Date of Service: Nov 29, 2016. Provider Documentation: SUBJECTIVE: Patient is doing much better today Low back pain /Left lower leg pain - improved Ambulating in hallway with minimal discomfort in lower back and left leg. No trauma. No localized weakness, numbness, fever, chills. OBJECTIVE: Vital Signs-as noted below Exam: General-AAOX3, no distress Neck-Supple, No JVD Lungs-AEBE, no wheezing, rhonchi Heart-S1, S2 normal, no murmurs Extremities-No edema Neuro-AAOX3, Power 5/5 all ext, Sensory -normal Lab data as noted below. Diagnostic Radiology LUMBAR SPINE MRI IMPRESSION: 1. There is a left lateral disc herniation at L4-L5. A disc fragment obliterates the left neural foramen and impinges on the exiting left L4 nerve root. 2. Lumbosacral spondylosis at additional levels as detailed above. See discussion for level by level analysis. There is no significant acquired compromise of the central canal. 3. Degenerative disc disease with associated degenerative endplate edema as above. ASSESSMENT & PLAN: Assessment and Plan INTRACTABLE BACK PAIN WITH LEFT LOWER LEG RADICULOPATHY SECONDARY TO L4-L5 DISC HERNIATION - IV Decadron, IV Toradol around the clock, PRN Percocet per ortho - Per ortho- plan is for surgery on - Pain mx per ortho- outpatient - Dilaudid 2 mg q 6-8 hours prn pain, Toradol 10 mg TID -would not recommend more than 3 days, Valium prn for spasm--- prescriptions given by ortho - Appreciate orthopedic inputs - PT/OT BPH - Continue finasteride and tamsulosin DEPRESSION - continue sertraline DVT PROPHYLAXIS - SCDs in the event patient requires OR DISPO -Ok to discharge today Vital Signs: Date Time Temp Pulse Resp B/P Pulse Ox O2 Delivery O2 Flow Rate FiO2 11/29/16 07:30 Room Air 11/29/16 07:06 36.6 56 14 123/69 95 Room Air 11/28/16 23:03 36.7 56 16 123/65 95 Room Air 11/28/16 19:30 Room Air 11/28/16 16:00 Room Air 11/28/16 15:34 36.7 63 16 130/60 95
--- NOTE | 2016-11-29 12:56 | Discharge Summary ---
Discharge Summary Admission Date: Nov 27, 2016 at 15:58 Discharge Date: Nov 29, 2016 Principal Diagnosis: 1. Lumbar disc herniation, L4-L5 2. Pain management Secondary Diagnoses/Problems: 1. BPH 2. Depression Procedures: Lumbar MRI Pain mx Consultations: Orthopedics Pending Studies/Follow-Up: Instructions / Follow-Up Instructions / Follow-Up MEDICATION CHANGES: Pain medications: 1. Dilaudid 2 mg- 1-2 tabs q 6 hours as needed for severe pain 2. Valium 5 mg q6-8 hours as needed for spasm 3. Toradol 10 mg q 8 hours scheduled 4. Discontinue Aspirin from tomorrow as surgery scheduled on FOLLOW UP With Dr Mejia as per instructions Medication Reconciliation New Medications: Hydromorphone Hcl (Dilaudid) 2 Mg Tab 2 MG PO Q6H PRN for severe pain, #20 TAB Ketorolac Tromethamine (Toradol) 10 Mg Tab 10 MG PO TID, #20 TAB Diazepam (Diazepam) 5 Mg Tab 5 MG PO TID PRN for MUSCLE SPASM, #30 TAB Continued Medications: Albuterol Sulfate (Proair Respiclick) 108 Mcg/Act Aer 2 PUFF INH QID PRN for SOB/Wheezing Aspirin (Aspirin EC Low Dose) 81 Mg Ectab 81 MG PO DAILY Cholecalciferol (Vitamin D3) 1,000 Unit Tab 1 TAB PO DAILY for 30 Days, #30 TAB 5 Refills Finasteride (Proscar) 5 Mg Tab 1 TAB PO DAILY for 30 Days, #30 TAB 11 Refills Fluticasone Prop/Salmeterol (Advair Diskus 100/50 60 Dose) 1 Ea Aerp 1 PUFFS INH BID for 30 Days, #1 INHALER 5 Refills Multivitamin (Multivitamin) Tab 1 TAB PO DAILY, TAB Sertraline (Zoloft) 100 Mg Tab 50 MG PO DAILY, TAB Tamsulosin Hcl (Flomax) 0.4 Mg Cap 1 CAP PO DAILY for 30 Days, #30 CAP 5 Refills Temazepam (Restoril) 15 Mg Cap 1 CAP PO HS PRN for Insomnia for 30 Days, #30 CAP 1 Refill Vitamin Mixture (Vitamin E Complete High G) 1 Cap Cap 1 CAP PO DAILY Discontinued Medications: Hydrocodone/Acetaminophen 5MG/325MG ([place] 5MG/325MG) Tab 1-2 TABLETS PO Q6 PRN for Pain PRN PAIN Admission Information HPI (per Admitting provider): 71 year old male who presents to the ER with back pain and left leg pain. Patient reports chronic back pain for the past several years. He reports acute worsening of the pain 4 days ago. Patient reports he was putting his socks on at the time. He reports the pain is located on the left side of his back and radiates down the left leg. He reports intermittent numbness to the left foot. He denies bowel or bladder dysfunction. Pain is increased with ambulation. No fever or chills. He denies chest pain and shortness of breath. No lightheadedness, dizziness, diaphoresis, or syncopal events. He denies abdominal pain, nausea, and vomiting. In the ER, patient underwent MRI that showed a left lateral disc herniation at L4-L5. A disc fragment obliterates the left neural foramen and impinges on the exiting left L4 nerve root. Patient notes improvement of pain when he took Valium that was prescribed for relaxation before the MRI. In the ED he was also given IV Dilaudid, Toradol, and Decadron. Physical Exam (per Admitting): General Appearance: no apparent distress Head: normocephalic Eyes: normal inspection ENT: hearing grossly normal Neck: supple, no JVD Respiratory/Chest: lungs clear, normal breath sounds, no respiratory distress Cardiovascular: regular rate, rhythm, no edema, normal peripheral pulses Abdomen/GI: normal bowel sounds, non tender, soft Extremities/Musculoskelatal: normal inspection, no calf tenderness, + pertinent finding (negative straight leg test) Neurologic/Psych: no motor/sensory deficits, alert, normal mood/affect, oriented x 3 Skin: normal color, warm/dry Hospital Course Assessment and Plan INTRACTABLE BACK PAIN WITH LEFT LOWER LEG RADICULOPATHY SECONDARY TO L4-L5 DISC HERNIATION - IV Decadron, IV Toradol around the clock, PRN Percocet per ortho - Per ortho- plan is for surgery on - Pain mx per ortho- outpatient - Dilaudid 2 mg q 6-8 hours prn pain, Toradol 10 mg TID -would not recommend more than 3 days, Valium prn for spasm--- prescriptions given by ortho - Appreciate orthopedic inputs - PT/OT BPH - Continue finasteride and tamsulosin DEPRESSION - continue sertraline DVT PROPHYLAXIS - SCDs in the event patient requires OR DISPO -Ok to discharge today Total time spent on discharge = This includes examination of the patient, discharge planning, medication reconciliation, and communication with other providers. Discharge Instructions Discharge Diagnosis / Problem: 1. Lumbar disc herniation L4-L5 Discharge Goals Goal(s): Diagnostic testing, Therapeutic intervention Activity Recommendations Activity Limitations: resume your previous activity (as tolerated ) . Instructions / Follow-Up Instructions / Follow-Up MEDICATION CHANGES: Pain medications: 1. Dilaudid 2 mg- 1-2 tabs q 6 hours as needed for severe pain 2. Valium 5 mg q6-8 hours as needed for spasm 3. Toradol 10 mg q 8 hours scheduled 4. Discontinue Aspirin from tomorrow as surgery scheduled on FOLLOW UP With Dr Mejia as per instructions Current Hospital Diet Patient's current hospital diet: Vegetarian Diet Discharge Diet Recommended Diet: AHA Diet (Heart Healthy), Low Sodium Diet (2gm Na) Pending Studies Studies pending at discharge: no Medical Emergencies . Who to Call and When: Medical Emergencies: If at any time you feel your situation is an emergency, please call 911 immediately. . Non-Emergent Contact Non-Emergency issues call your: Primary Care Provider . . "Provider Documentation" section prepared by Odessa Monaco. VTE Core Measure Inpt VTE Proph given/why not?: Enoxaparin (Lovenox)SQ
[2016-11-29 13:18] VITALS: BP 123/69; PULSE 56; TEMP 36.6; O2SAT 95
[2016-12-01] MEDS ORDERED: DIAZ-165 PO (12:24)
[2016-12-01] MEDS ORDERED: KETO10TA PO (12:24)
[2016-12-01] MEDS ORDERED: HYDR2TAB48 PO (12:24)
== END 2016-11-29 15:09 | disposition home health service (06) | DRG 93 ==
LOC: ENRESERVTM → ENRESERVDT → EDBD 11:44 → C.EDA 11:45 → C.MSW 15:58
PROVIDERS: ADMIT Hospitalist; ATTEND Internal Medicine
DX: G89.29 Other chronic pain (principal); M54.5 Low back pain; M51.16 Intervertebral disc disorders with radiculopathy, lumbar region; M76.32 Iliotibial band syndrome, left leg; M47.26 Other spondylosis with radiculopathy, lumbar region; R20.2 Paresthesia of skin; J45.909 Unspecified asthma, uncomplicated; N40.0 Benign prostatic hyperplasia without lower urinary tract symptoms; F32.9 Major depressive disorder, single episode, unspecified; Z87.891 Personal history of nicotine dependence; Z79.82 Long term (current) use of aspirin; Z79.51 Long term (current) use of inhaled steroids; Z79.899 Other long term (current) drug therapy; Z79.891 Long term (current) use of opiate analgesic

== ENCOUNTER 2016-12-04 11:57 | Observation (INO) | payer BC, OTHER ==
[2016-12-01 12:24] VITALS: BMI 24.0
[2016-12-04] VITALS (7 sets, daily range): BP systolic 110–134; BP diastolic 64–80; PULSE 58–73; TEMP 36.4–36.7; O2SAT 93–96; Ht 175.3 cm; Wt 75.0 kg
[~2016-12-04] VITALS: Ht 175.3 cm; Wt 75.0 kg
--- NOTE | 2016-12-04 08:21 | HISTORY & PHYSICAL EXAMINATION ---
DATE OF ADMISSION: 12/04/2016 CHIEF COMPLAINT: Left lower extremity difficulty. Preop disc herniation lumbar spine L4-L5. HISTORY OF PRESENT ILLNESS: Seymour is a delightful gentleman, 71 years of age, with a large disc herniation, lumbar spine with continued pain refractory to conservative measures. He has had a fairly extensive workup. PAST MEDICAL HISTORY: Negative for heart disease, heart failure, occasional asthma, no sleep apnea, anxiety, acid reflux, enlarged prostate. No carcinoma. SOCIAL HISTORY: Negative smoking. Minimal alcohol. PAST SURGICAL HISTORY: Denied. ALLERGIES: CODEINE which makes him nauseated, not true allergy. MEDICATIONS: Advair, finasteride. REVIEW OF SYSTEMS: He denied any blurred vision, double vision, mental issues, depression, some anxiety. Denies any ear, nose and throat complaints. Denies any chest pain, shortness of breath, asthma, wheezing. No nausea, vomiting, some acid reflux, no constipation. No urgency. Slight frequencies. Enlarged prostate. OBJECTIVE: VITAL SIGNS: 5' 9", 165, blood pressure on the chart. Afebrile, pulse regular at 80 beats per minute. HEENT: Pupils react to light and accommodation. Good dentition. No adenopathy. CHEST: Normal S1, S2, no S3. LUNGS: Clear to auscultation. No rales, rhonchi or wheezing. ABDOMEN: Soft, nontender, bowel sounds present. NEUROLOGIC: Intact. Slight loss of sensation, but no loss of motor function. Images demonstrate a left lateral disc herniation L4-L5 large disc fragment that obliterates the left neural foramen impinging on the left L4 nerve root. Some spondylosis. IMPRESSION: Disc herniation, lumbar spine L4-L5. DISPOSITION: Lumbar spine discectomy at L4-L5 lumbar spine. I anticipate the surgery will take about 60-90 minutes and hospital stay roughly 24 hours.
--- NOTE | 2016-12-04 11:05 | History & Physical Bridge Note ---
H&P Re-Evaluation Bridge Note: I have examined the patient, reviewed the History & Physical and in the interval since the performance of the History & Physical I have noted the following changes of clinical significance: No changes noted
[~2016-12-04 11:57] MED LIST: ADVIN10/60 INH; ALBU18002 INH; ASPEC81 PO; ATROPINE SULFATE 0.1 MG/ML 5ML SYR IV PRN; CEFAZOLIN 2000 MG/60 ML D5W 60 ML IV SCH; CHOL1000 PO; DIAZ-165 PO; EpHEDrine SULFATE INJ 50 MG/ML AMP IV PRN; FINA5TAB4 PO; HYDR2TAB48 PO; HYDROmorphone INJ 2 MG/ML SYR/VIAL IV PRN; KETO10TA PO; LACTATED RINGER'S 1000ML 1,000 ML IV SCH; MULT-506 PO; NSS 1000ML IV SCH; ONDANSETRON INJ 2 MG/ML 2 ML VIAL IV PRN; PHENYLEPHRINE 100MCG/ML 5ML SYR IV PRN; SERT-234 PO; TAMS0.4C38 PO; TEMA-79 PO
[2016-12-04] MEDS ORDERED: MIDAZOLAM HCL 1 MG/ML 2ML VIAL ONE (13:45)
[2016-12-04] MEDS ORDERED: NEOSTIGMINE METHYLSULFATE 5 MG/5 ML SYR ONE (13:45)
[2016-12-04] MEDS ORDERED: ROCURONIUM BROMIDE 10 MG/ML 5 ML VIAL ONE (13:45)
[2016-12-04] MEDS ORDERED: PHENYLEPHRINE HCL INJ 10 MG/ML VIAL ONE ×2 (13:45→14:43)
[2016-12-04] MEDS ORDERED: LIDOCAINE HCL 2% 2 ML VIAL (20MG/ML) ONE (13:45)
[2016-12-04] MEDS ORDERED: FENTANYL CITRATE INJ 50 MCG/1 ML 2 ML VIAL ONE (13:45)
[2016-12-04] MEDS ORDERED: EpHEDrine SULFATE INJ 50 MG/ML AMP ONE (13:45)
[2016-12-04] MEDS ORDERED: SUCCINYLCHOLINE CHLORIDE 20 MG/ML 10 ML VIAL IV ONE (13:45)
[2016-12-04] MEDS ORDERED: GLYCOPYRROLATE INJ 0.2 MG/ML VIAL ONE (13:45)
[2016-12-04] MEDS ORDERED: PROPOFOL IV EMULSION 10 MG/ML 20 ML VIAL IV ONE ×2 (13:45→14:35)
[2016-12-04] MEDS ORDERED: ONDANSETRON INJ 2 MG/ML 2 ML VIAL ONE (13:45)
[2016-12-04] MEDS ORDERED: DEXAMETHASONE SOD INJ 4 MG/ML VIAL ONE (13:45)
[2016-12-04] MEDS ORDERED: THROMBIN FOR SOLN 20000 UNIT KIT ONE (13:55)
[2016-12-04] MEDS ORDERED: BACITRACIN 50000 UNIT VIAL ONE (13:55)
[2016-12-04] MEDS ORDERED: VANCOMYCIN HCL 1000MG/20ML VIAL ONE (13:55)
[2016-12-04] MEDS ORDERED: BUPIVACAINE/EPINEPHRINE 0.5% MPF 1:200,000 30 ML VIAL ONE (13:55)
[2016-12-04] MEDS ORDERED: GELATIN SPONGE SZ 100 ONE (13:55)
--- NOTE | 2016-12-04 15:20 | DIAGNOSTIC IMAGING REPORT ---
INTRAOPERATIVE RADIOGRAPH CLINICAL HISTORY: L5-S1 discectomy. Fluoroscopy time: 9 seconds. FINDINGS: A single lateral view of the lower lumbar spine is presented. A surgical probe projects at the L4-L5 disc space. IMPRESSION: Intraoperative image from L4 to L5 discectomy as above. Electronically signed by: Raymond Harvey M.D. 12/04/2016 3:19 PM Dictated Date/Time: 12/04/2016 3:18 PM
--- NOTE | 2016-12-04 15:43 | [facility] Post Operative Brief Note ---
Immediate Operative Summary Operative Date Dec 04, 2016. Pre-Operative Diagnosis Disc herniation, lumbar spine L4-5 Post-Operative Diagnosis Same as pre-operative diagnosis Procedure(s) Performed L4-L5 Discectomy Surgeon Dr. Reagan Mejia Biological Lab Technician Surgeon(s) Jose Brumfield PA-C Estimated Blood Loss 30ml Findings disc herniation Specimens None per surgeon
[2016-12-04] MEDS ORDERED: ONDANSETRON INJ 2 MG/ML 2 ML VIAL IV PRN (15:45)
[2016-12-04] MEDS ORDERED: ALBUTEROL HFA INHALER 18 GM INH PRN (15:45)
[2016-12-04] MEDS ORDERED: METOCLOPRAMIDE HCL INJ 5 MG/ML 2 ML VIAL IV PRN (15:45)
[2016-12-04] MEDS ORDERED: OXYCODONE/ACETAMINOPHEN 5-325 TAB PO PRN ×2 (15:45)
[2016-12-04] MEDS ORDERED: PROMETHAZINE HCL INJ 12.5 MG in SODIUM CHLORIDE 0.9% 50ML 50 ML IV PRN (15:45)
[2016-12-04] MEDS ORDERED: LORAZEPAM INJ 1 MG in SYRINGE 0 ML IV PRN (15:45)
[2016-12-04] MEDS ORDERED: DIAZEPAM 5MG TAB PO PRN (15:45)
[2016-12-04] MEDS ORDERED: ACETAMINOPHEN 325 MG TAB PO PRN (15:45)
[2016-12-04] MEDS ORDERED: TEMAZEPAM 15 MG CAP PO PRN (15:45)
[2016-12-04] MEDS ORDERED: LORAZEPAM 1 MG TAB PO PRN (15:45)
[2016-12-04] MEDS ORDERED: HYDROmorphone INJ 1 MG/ML SYR IV PRN ×2 (15:45)
[2016-12-04] MEDS ORDERED: MAGNESIUM HYDROXIDE SUSP 30 ML UDC PO PRN (15:45)
--- NOTE | 2016-12-04 15:48 | Discharge Instructions ---
Discharge Instructions Admission Reason for Admission: Lumbar Spinal Stenosis Discharge Discharge Diagnosis / Problem: disc herniation Discharge Goals Goal(s): Improve function Activity Recommendations Activity Limitations: as noted below Lifting Limitations: until after follow-up appointment Exercise/Sports Limitations: until after follow-up appointment May Resume Sexual Activity: after follow-up appointment Shower/Bathe: keep incision dry Driving or Machine Use: . Instructions / Follow-Up Instructions / Follow-Up MEDICATIONS: Please take your prescriptions as instructed at your pre-op appointment. SPECIAL CARE: The following information is intended to answer some of the common questions and concerns regarding your surgery. Each patient is an individual and receives individual counselling throughout the course of treatment, from diagnosis to surgery all the way through recovery. What follows is not an exhaustive list, but should be a useful guide to some of the common questions and concerns patients have regarding their surgeries. These are not provided to keep you from calling us; rather, they give you something accurate and concrete to reference as you recover from your procedure. If you need us, we are available to you. As always, if you are not sure about something, call us at [phone]. MEDICAL EMERGENCIES: For these conditions, call 911 or go to your local hospital-based Emergency Department - not [facility] or equivalent. * Paralysis * Severe chest pain or difficulty breathing * Swelling or redness of either leg Spine procedures can be rather complex and though complications are rare, they do occur. In such cases, effective advice regarding emergency situations cannot always be addressed over the telephone. You may be referred to the emergency department for more effective management of your problem. Activity Limitations: It is important to give your body time to heal, so please limit your activities : * In general, don't do anything that moves your spine too much. You should avoid contact sports, twisting or heavy lifting while you recover. * 5-10 pounds is all you should attempt to lift. * You should not plan on driving for approximately 3 weeks and you should avoid traveling more than 30-45 minutes at a time. Longer trips should be broken down with walking breaks spaced appropriately. * Physical therapy is not usually required. * Walking and good posture practices will help you recover and regain your function. * Avoid straining or sudden changes in position. * In general, the goal is to take it easy and recover. Don't cause any new problems. Just relax. Showers: * Do not take a bath, use a Jacuzzi or hot tub or otherwise submerge your incision. * It is usually safe to take a shower 4-5 days after your surgery. * Your incision does not require any special creams or ointments. * Simply clean it with soap and water, dry and re-dress with a clean bandage afterwards. Incision: * Keep incision clean, dry and protected until your first follow-up appointment. * Some amount of drainage and redness is normal. Any drainage should be fairly clear and not have a foul odor. * If you feel anything is wrong or you have excessive drainage, please call us. * Your stitches and anne will be removed 10-14 days after your surgery. At the time of your first post-op visit. * Neck surgeries are typically closed with a suture underneath the skin. The steri-strips over the incision should be maintained until we see you in the office. Bracing: * You may be provided with a back or neck brace to encourage good posture and prevent injury. It will remind you not to do too much as you heal and will alert others to the fact that you have had a surgery. * Back braces may be removed for showers and when you are resting at home. They must be worn when you are walking around for any period of time or for travel. * For neck surgery, you will likely be provided with two cervical collars. The soft collar ([place] or foam rubber) is worn most commonly throughout the day and while sleeping. The plastic collar (provided at the hospital) is for showering/bathing. * Except while eating, collars should remain in place. More specifically, bracing is provided for a purpose and should be worn. * Please obtain your brace or collars prior to your operation and bring them to the hospital with you on the day of surgery. * You should also bring your collars to your post-op appointment with Dr. Mejia. You should always take good care of your body and practice healthy habits, especially following surgery. You should: * Follow your doctor's treatment plan * Sit and stand properly with good posture (ears over shoulders, shoulders over hips) Don't slouch * Learn to lift correctly * Exercise regularly (low-impact aerobic exercise is especially good, but check with your doctor first) * Generally, be up and walking for 5-10 minutes at a time at least 3-4 times per day from the day you get home * Increasing walking to tolerance until you can walk for 20-30 minutes at a time * Attain and maintain a healthy body weight * Eat healthy foods ( a well-balanced, low-fat diet rich in fruits and vegetables) and get enough calcium * Avoid excessive use of alcohol When to call our office - If you notice any of the following: * Increased pain not relieve by pain medicine * Fevers greater then 100 degrees F, chills or flu symptoms * Increased redness around incision * Drainage from the incision that is not clear * Any foul smelling drainage * Swelling or fluid collection beneath the skin Miscellaneous: * In the hospital, you may be given a walker or cane for support while walking. These are temporary needs and are intended to prevent injuries due to falls. You may discontinue them when you feel strong and steady enough on your feet. * Sleep in a comfortable position. We find that many patients find a lounge chair or recliner with several pillows to be beneficial in the early post-operative period. * The support stockings should be used for 7-10 days and may be discontinued when you are back to walking more and conducting usual household activities. No problem is insignificant. We are here to help you and get you well. Contact us at [phone]. Definitions: Foraminotomy: If part of the disc or a bone spur (osteophyte) is pressing on a nerve as it leaves the vertebra (through an exit called the foramen), a foraminotomy may be done. Otomy means "to make an opening." A foraminotomy is making the opening of the foramen larger, so the nerve can exit without being compressed. Laminotomy: Similar to the foraminotomy, a laminotomy makes a larger opening, this time in your bony plate protecting your spinal canal and spinal cord (the lamina). The lamina may be pressing on your nerve, so the surgeon may make more room for the nerves using a laminotomy. Laminectomy: Sometimes, a laminotomy is not sufficient. The surgeon may need to remove all or part of the lamina. This procedure is called a laminectomy. This can often be done at many levels without any harmful effects. Current Hospital Diet Patient's current hospital diet: Regular Diet Discharge Diet Recommended Diet: Regular Diet Fluid Restriction: None Procedures Procedures Performed: L4-L5 Discectomy Pending Studies Studies pending at discharge: no Medical Emergencies . Who to Call and When: Medical Emergencies: If at any time you feel your situation is an emergency, please call 911 immediately. . Non-Emergent Contact Non-Emergency issues call your: Surgeon Call Non-Emergent contact if: temperature is above 101.5, your pain is not controlled, wound has increased pain, you have any medication questions . "Provider Documentation" section prepared by Reagan Mejia. VTE Core Measure Inpt VTE Proph given/why not?: Treatment not indicated
[2016-12-04] MEDS ORDERED: HYDROmorphone INJ 1 MG/ML SYR ONE (15:56)
[2016-12-04] MEDS ORDERED: HYDROmorphone INJ 2 MG/ML SYR/VIAL ONE (15:56)
[2016-12-04] MEDS ORDERED: IV FLUIDS COMPLETED PRN (16:15)
--- NOTE | 2016-12-04 16:29 | Anesthesiology Progress Note ---
Anesthesia Post Op Note Date & Time Dec 04, 2016 at 16:30 Vital Signs Pain Intensity: 4 Vital Signs Past 12 Hours Date Time Temp Pulse Resp B/P Pulse Ox O2 Delivery O2 Flow Rate FiO2 12/04/16 16:20 80 14 131/64 99 Nasal Cannula 4 12/04/16 16:10 72 14 139/71 100 Nasal Cannula 4 12/04/16 16:00 82 16 154/74 100 Nasal Cannula 4 12/04/16 15:50 36.4 87 16 146/77 100 Mask 10 12/04/16 12:32 36.7 60 16 134/74 95 Room Air Notes Mental Status: alert / awake / arousable, participated in evaluation Pt Amnestic to Procedure: Yes Nausea / Vomiting: adequately controlled Pain: adequately controlled Airway Patency, RR, SpO2: stable & adequate BP & HR: stable & adequate Hydration State: stable & adequate Anesthetic Complications: no major complications apparent
--- NOTE | 2016-12-04 16:35 | OPERATIVE REPORT ---
DATE OF OPERATION: 12/04/2016 PREOPERATIVE DIAGNOSIS: Disk herniation, L4-L5. POSTOPERATIVE DIAGNOSIS: Same. PROCEDURE: Included diskectomy L4-L5, foraminotomy, partial facetectomy. SURGEON: Jackie. LAB CLERK: Jose Brumfield PA-C. COMPLICATIONS: Zero. BLOOD LOSS: 300 mL. COUNTS: Sponge and needle count correct at the close of the procedure. DESCRIPTION OF PROCEDURE: The patient was taken to the operating room and general intubated anesthetic provided to the patient, placed prone, scrubbed, prepped and draped sterile. We made approximately a 2 inch skin incision over the L4-L5 interval lumbar spine dissecting the soft tissue in the same plane, putting in a deep self-retaining retractor. We did upgoing laminotomy of L4 downgoing L5 foraminotomy, partial facetectomy. We preserved all neural structures and vascular structures. The dura was not hurt. We could see the nerve root. We retracted the nerve root in a medial direction. We did a formal diskectomy first marking it with an 18 gauge spinal needle. We used a 15 scalpel blade, various sized pituitary rongeurs, up biters, down biters, straight pituitaries were irrigated. We probed for deep and additional fragments, we went underneath the 4 nerve root in this case. We completed the foraminotomy, eccentrically the foraminotomy. We carefully looked for any type of other pathology. We irrigated and closed in layers over Hemovac drain with 1 Vicryl suture, 2-0 in subcuticular layer, 3-0 nylon on the skin, sterile dressing applied. The patient returned to PACU stable. There were no apparent complications stated. I attest to the content of the Intraoperative Record and any orders documented therein. Any exceptio ns are noted below.
[2016-12-04] MEDS: SODIUM CHLORIDE 0.9% 1000ML 1,000 ML IV SCH (18:23)
[2016-12-04] MEDS: KETOROLAC TROMETHAMINE 15 MG/ML VIAL IV. SCH (20:24)
[2016-12-04] MEDS: CEFAZOLIN IV 1,000 MG in DEXTROSE 5% 50ML 50 ML IV SCH (21:54)
[2016-12-04] MEDS: DEXAMETHASONE INJ 10 MG in SYRINGE 0 ML IV SCH (21:55)
[2016-12-05] MEDS: KETOROLAC TROMETHAMINE 15 MG/ML VIAL IV. SCH ×3 (01:38→14:40)
[2016-12-05 04:30] VITALS: BP 104/61; PULSE 65; TEMP 36.4; O2SAT 94
[2016-12-05] MEDS ORDERED: BISACODYL 10 MG SUPP PR PRN (06:00)
[2016-12-05] MEDS ORDERED: BISACODYL 5 MG TABEC PO PRN (06:00)
[2016-12-05] MEDS: CEFAZOLIN IV 1,000 MG in DEXTROSE 5% 50ML 50 ML IV SCH ×2 (06:21→14:43)
[2016-12-05] MEDS: DEXAMETHASONE INJ 10 MG in SYRINGE 0 ML IV SCH ×2 (06:22→14:40)
[2016-12-05] MEDS ORDERED: LIDOCAINE HCL 2% JELLY 30 ML TUBE EXT ONE ×2 (06:27→13:53)
[2016-12-05] MEDS ORDERED: NURSING DECISION MEDICATION ORDER SCH (06:30)
[2016-12-05] MEDS: SODIUM CHLORIDE 0.9% 1000ML 1,000 ML IV SCH (06:42)
[2016-12-05 08:09] VITALS: BP 106/60; PULSE 57; TEMP 36.4; O2SAT 97
[2016-12-05] MEDS ORDERED: TAMSULOSIN HCL 0.4 MG CAP PO SCH (09:00)
[2016-12-05] MEDS ORDERED: FINASTERIDE 5 MG TAB PO SCH (09:00)
[2016-12-05] MEDS ORDERED: ASPIRIN 81 MG ECTAB PO SCH (09:00)
[2016-12-05] MEDS ORDERED: POLYETHYLENE (MIRALAX) 17 GM PACK PO SCH (09:00)
[2016-12-05] MEDS ORDERED: MULTIVITAMIN TAB PO SCH (09:00)
[2016-12-05] MEDS ORDERED: SERTRALINE HCL 100 MG TAB PO SCH (09:00)
[2016-12-05] MEDS ORDERED: NURSING VERBAL MED ORDER ONE ×2 (09:15→18:15)
--- NOTE | 2016-12-05 10:10 | DISCHARGE SUMMARY ---
DATE OF DISCHARGE: 12/05/2016. SUBJECTIVE: Minimal complaints of pain. Alert, oriented, some urinary retention. OBJECTIVE: Wound clean, dry. Neurologically normal. IMPRESSION: Status post discectomy. DISPOSITION: Will discharge Seymour home later on this morning, rolling walker with wheels would be appropriate. Back brace has been ordered but will not be fulfilled at this point in time. He has prescriptions for medication at home. We have gone over instruction precautions with him at length. We will see him back for follow-up examination in the office in approximately 10 days.
[2016-12-05 11:46] VITALS: BP 116/67; PULSE 61; TEMP 36.8; O2SAT 98
[2016-12-05 15:19] VITALS: BP 112/66; PULSE 59; TEMP 36.6; O2SAT 97
[2016-12-05 17:55] VITALS: BP 112/66; PULSE 59; TEMP 36.6; O2SAT 97
[2016-12-05] MEDS ORDERED: LIDOCAINE HCL 2% JELLY 30 ML TUBE EXT SCH (18:30)
--- NOTE | 2016-12-06 13:28 | Urology Consultation ---
History General Date of Service: Dec 06, 2016. Primary Care Physician: Pat Monaco M.D. History of Present Illness patient well known to me He had overflow incontinence POD#0 in the night he is pod 31 disc surgery and cannot urinate he has had cic 3-4 times large volumes a bit bloody today has known bph. I suggest he have rudd now 16 coude and go home remove rudd on Wednesday am and call our [facility] office by noon if not voiding well. Laboratory Labs were reviewed and are within normal limits unless listed below. Labs are available in the chart and at [facility] Family History FH: CAD (coronary artery disease) FATHER Social History Hx Tobacco Use In Past Year?: No (QUIT IN AGE 21) Marital status: Allergies Coded Allergies: No Known Allergies (Unverified , 12/04/16) Medications Home Medications: Home Meds and Scripts Medications Dose Route/Sig Max Daily Dose Days Date Category Dose Instructions Toradol (Ketorolac Tromethamine) 10 Mg Tab 10 Mg PO TID PRN 12/01/16 Reported Dilaudid (Hydromorphone Hcl) 2 Mg Tab 2 Mg PO BID PRN 12/01/16 Reported Valium (Diazepam) 5 Mg Tab 5 Mg PO TID PRN 12/01/16 Reported Advair Diskus 100/50 60 Dose (Fluticasone Prop/Salmeterol) 1 Ea Aerp 1 Puffs INH BID 30 11/27/16 Reported Vitamin D3 (Cholecalciferol) 1,000 Unit Tab 1 Tab PO QAM 30 11/27/16 Reported Multivitamin (Multivitamins) Tab 1 Tab PO QAM 11/27/16 Reported Aspirin EC Low Dose (Aspirin) 81 Mg Ectab 81 Mg PO DAILY 11/27/16 Reported STOP 11/26 Restoril (Temazepam) 15 Mg Cap 1 Cap PO HS PRN 30 11/27/16 Reported Zoloft (Sertraline HCl) 100 Mg Tab 100 Mg PO QAM 11/27/16 Reported Flomax (Tamsulosin Hcl) 0.4 Mg Cap 1 Cap PO QAM 30 11/27/16 Reported Proscar (Finasteride) 5 Mg Tab 1 Tab PO QAM 11/27/16 Reported Proair Respiclick (Albuterol Sulfate) 108 Mcg/Act Aer 2 Puff INH QID PRN 11/27/16 Reported
== END 2016-12-05 19:39 | disposition home or self-care (01) ==
LOC: ENRESERVDT → ENRESERVTM → C.ACU 11:57 → C.3E 12:25
PROVIDERS: ADMIT Orthopaedic Surgery Orthopaedic Surgery of the Spine; ATTEND Orthopaedic Surgery Orthopaedic Surgery of the Spine
DX: M51.26 Other intervertebral disc displacement, lumbar region (principal); N39.490 Overflow incontinence; Z82.49 Family history of ischemic heart disease and other diseases of the circulatory system; Z87.891 Personal history of nicotine dependence

== ENCOUNTER → 2017-05-28 | Outpatient (CLI) | payer BC ==
[~2017-05-28] MED LIST changes: -ATROPINE SULFATE 0.1 MG/ML 5ML SYR IV PRN; -CEFAZOLIN 2000 MG/60 ML D5W 60 ML IV SCH; -EpHEDrine SULFATE INJ 50 MG/ML AMP IV PRN; -HYDROmorphone INJ 2 MG/ML SYR/VIAL IV PRN; -LACTATED RINGER'S 1000ML 1,000 ML IV SCH; -NSS 1000ML IV SCH; -ONDANSETRON INJ 2 MG/ML 2 ML VIAL IV PRN; -PHENYLEPHRINE 100MCG/ML 5ML SYR IV PRN
--- NOTE | 2017-05-28 17:03 | DIAGNOSTIC IMAGING REPORT ---
LUMBAR SPINE MRI HISTORY: Low back pain. Left hip and leg pain. DISC HERNIATION TECHNIQUE: Multiplanar multisequence MRI of the lumbar spine was performed without the use of contrast. COMPARISON: Lumbar spine MRI 11/27/2016. FINDINGS: For the purpose of the report the L5-S1 disc space will be located on axial image 27 of 30. Alignment is intact. No acute fracture. Motion artifact with thousand and 17 1 sequences. This results in suboptimal evaluation. 1.9 cm T1 and T2 hyperintense exophytic lesion within the right kidney. This favors a cyst. Soft tissue edema seen within the lower lumbar region and extending towards the left L4-5 facet. This is consistent with residual postoperative change status post a left L4-L5 hemilaminectomy. The conus terminates at the L1 level. Moderate disc space narrowing at L4-5 which has progressed. Severe disc space narrowing at L2-L3 and L5-S1 which remains unchanged. Mild disc space narrowing L3-L4 is also unchanged. Left-sided endplate signal abnormality/edema at L4-L5 on which is new from the prior study. No definite erosions identified at this time. No paravertebral edema. L1-L2: No significant central canal or neural foraminal narrowing. L2-L3: No significant central canal narrowing. Tiny broad-based posterior disc osteophyte complex asymmetric to the right results in mild right neural foraminal narrowing. L3-L4: No significant central canal or neural foraminal narrowing. Small broad-based posterior disc bulge, unchanged. L4-L5: There is again noted a left paracentral disc extrusion which extends into the left L4-5 neural foramen and compresses the exiting nerve root. This measures 15 x 7 mm. This is similar to the prior study but favors recurrent disc herniation given the loss of height of the L4-5 disc space. No significant central canal or right-sided neural foraminal narrowing. L5-S1: No significant central canal or neural foraminal narrowing. IMPRESSION: 1. A 15 x 7 mm left paracentral disc extrusion at L4-5 which extends into the left neural foramen and compresses the exiting nerve root. This is similar to the prior study but favors recurrent disc herniation given the interval loss of height of the L4-5 disc space. 2. Interval left L4-L5 hemilaminectomy. 3. Left-sided endplate signal abnormality/edema at L4-L5 on which is new from the prior study. No definite erosions identified at this time. No paravertebral edema. Therefore, this favors postoperative or discogenic changes. An early discitis/osteomyelitis could also have a similar appearance but is considered less likely. If there is clinical concern for discitis/osteomyelitis then short-term MRI follow-up can be performed. Electronically signed by: Ismael Ramirez M.D. 05/28/2017 5:01 PM Dictated Date/Time: 05/28/2017 4:50 PM
== END | disposition home or self-care (01) ==
LOC: C.MRIBC 15:43
PROVIDERS: ATTEND Orthopaedic Surgery Orthopaedic Surgery of the Spine
DX: M51.26 Other intervertebral disc displacement, lumbar region (principal)